=== PATIENT | female | born 1985 | race Caucasian/White ===

== ENCOUNTER 2023-09-02 20:28 | Emergency (ER) | payer SELFPAY ==
[~2023-09-02] VITALS: Ht 157.5 cm; Wt 90.7 kg
[2023-09-02 20:35] VITALS: BP 120/75; PULSE 63; RESP 16; TEMP 97.7; O2SAT 96
[2023-09-02 21:31] VITALS: BP 125/80; PULSE 60; RESP 16; TEMP 98; O2SAT 98
== END 2023-09-02 21:31 | disposition home or self-care (01) ==
LOC: MED 20:28
DX: T81.30XA Disruption of wound, unspecified, initial encounter (principal); Z79.899 Other long term (current) drug therapy
CPT/HCPCS: 99281